=== PATIENT | female | born 1970 | race Caucasian/White ===

== ENCOUNTER 2016-08-12 20:13 | Emergency (ER) | payer MEDICARE ==
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
[2016-08-12 21:20] LABS: ABSOLUTE BASOPHILS # (AUTO) 0.1 10^3/uL (0.0-0.2); ABSOLUTE LYMPHOCYTES (AUTO) 2.5 10^3/uL (0.5-4.7); ABSOLUTE MONOCYTES (AUTO) 0.8 10^3/uL (0.1-1.4); ABSOLUTE NEUT (AUTO) 5.8 10^3/uL (1.7-8.2); BASOPHILS % (AUTO) 0.7 % (0-2); EOSINOPHILS % (AUTO) 0.4 % (0-6); HEMATOCRIT 39.8 % (36.0-47.0); HEMOGLOBIN 12.7 g/dL (12.0-15.5); HGB HCT DIFFERENCE -1.7; LYMPHOCYTES % (AUTO) 27.4 % (13-45); MEAN CORPUSCULAR HEMOGLOBIN 30.4 pg (27.0-33.4); MEAN CORPUSCULAR VOLUME 95 fl (80-97); MONOCYTES % (AUTO) 8.3 % (3-13); RED BLOOD COUNT 4.19 10^6/uL (3.72-5.28); RED CELL DISTRIBUTION WIDTH 13.9 % (11.5-14.0); SEGMENTED NEUTROPHILS % (AUTO) 63.2 % (42-78); WHITE BLOOD COUNT 9.1 10^3/uL (4.0-10.5)
[2016-08-12 21:37] LABS: ALANINE AMINOTRANSFERASE 30 U/L (9-52); ALBUMIN 3.6 g/dL (3.5-5.0); ALKALINE PHOSPHATASE 71 U/L (38-126); ANION GAP 9 (5-19); ASPARTATE AMINO TRANSFERASE 29 U/L (14-36); BILIRUBIN,DIRECT 0.2 mg/dL (0.0-0.4); BILIRUBIN,TOTAL 0.4 mg/dL (0.2-1.3); BLOOD UREA NITROGEN 13 mg/dL (7-20); CALCIUM 9.8 mg/dL (8.4-10.2); CARBON DIOXIDE 30 mmol/L (22-30); CHLORIDE 103 mmol/L (98-107); CREATININE RESULT 1.16 mg/dL (0.52-1.25); GLUCOSE 102 mg/dL (75-110); POTASSIUM 5.1 mmol/L (3.6-5.0); SODIUM 141.6 mmol/L (137-145); TOTAL PROTEIN 6.2 g/dL (6.3-8.2)
[2016-08-13 01:16] LABS: APPEARANCE,URINE SLIGHTLY-CLOUDY; BILIRUBIN,URINE NEGATIVE (NEGATIVE); GLUCOSE, URINE NEGATIVE (NEGATIVE); KETONES,URINE TRACE mg/dL (NEGATIVE); LEUKOCYTE ESTERASE,URINE NEGATIVE (NEGATIVE); NITRITE,URINE NEGATIVE (NEGATIVE); PROTEIN,URINE NEGATIVE (NEGATIVE); UROBILINOGEN,URINE NEGATIVE mg/dL (<2.0)
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
[2016-08-13 02:33] VITALS: BP 97/68
== END 2016-08-13 02:30 | disposition home or self-care (01) ==
LOC: ER 20:13
DX: R25.1 Tremor, unspecified (principal); R42 Dizziness and giddiness; R55 Syncope and collapse; Z88.6 Allergy status to analgesic agent; Z90.49 Acquired absence of other specified parts of digestive tract
CPT/HCPCS: 36415; 70450; 80053; 81001; 85025; 99284

== ENCOUNTER 2016-10-03 15:30 | Emergency (ER) | payer MEDICARE ==
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
[2016-10-03 16:13] LABS: ABSOLUTE BASOPHILS # (AUTO) 0.1 10^3/uL (0.0-0.2); ABSOLUTE LYMPHOCYTES (AUTO) 2.3 10^3/uL (0.5-4.7); ABSOLUTE NEUT (AUTO) 6.7 10^3/uL (1.7-8.2); BASOPHILS % (AUTO) 0.8 % (0-2); HEMATOCRIT 37.2 % (36.0-47.0); HEMOGLOBIN 12.3 g/dL (12.0-15.5); HGB HCT DIFFERENCE -0.3; LYMPHOCYTES % (AUTO) 22.9 % (13-45); MEAN CORPUSCULAR HEMOGLOBIN 30.6 pg (27.0-33.4); MEAN CORPUSCULAR VOLUME 93 fl (80-97); MONOCYTES % (AUTO) 9.5 % (3-13); RED BLOOD COUNT 4.01 10^6/uL (3.72-5.28); RED CELL DISTRIBUTION WIDTH 13.6 % (11.5-14.0); SEGMENTED NEUTROPHILS % (AUTO) 66.8 % (42-78)
[2016-10-03 16:30] LABS: ALANINE AMINOTRANSFERASE 25 U/L (9-52); ALBUMIN 2.9 g/dL (3.5-5.0); ALKALINE PHOSPHATASE 56 U/L (38-126); ANION GAP 7 (5-19); ASPARTATE AMINO TRANSFERASE 14 U/L (14-36); BILIRUBIN,DIRECT 0.3 mg/dL (0.0-0.4); BILIRUBIN,TOTAL 0.5 mg/dL (0.2-1.3); BLOOD UREA NITROGEN 15 mg/dL (7-20); CALCIUM 8.6 mg/dL (8.4-10.2); CARBON DIOXIDE 23 mmol/L (22-30); CHLORIDE 110 mmol/L (98-107); CREATININE RESULT 0.86 mg/dL (0.52-1.25); GLUCOSE 64 mg/dL (75-110); LIPASE 88.5 U/L (23-300); POTASSIUM 3.9 mmol/L (3.6-5.0); SODIUM 140.4 mmol/L (137-145); TOTAL PROTEIN 5.4 g/dL (6.3-8.2)
[2016-10-03] MEDS ORDERED: NORMAL SALINE 1000 ML 1,000 ML IV ONE (16:31)
--- NOTE | 2016-10-03 17:11 | RADIOLOGY REPORT (SQ) ---
EXAM DESCRIPTION: CT ABD/PELVIS WITH IV ONLY COMPLETED DATE/TIME: 10/03/2016 4:57 pm REASON FOR STUDY: LLQ pn, n/v/d, r/o diverticulitis COMPARISON: MRI abdomen 05/31/2015 TECHNIQUE: CT scan of the abdomen and pelvis performed using helical scanning technique with dynamic intravenous contrast injection. No oral contrast. Images reviewed with lung, soft tissue, and bone windows. Reconstructed coronal and sagittal MPR images reviewed. Delayed images for evaluation of the urinary system also acquired. All images stored on PACS. All CT scanners at this facility use dose modulation, iterative reconstruction, and/or weight based d osing when appropriate to reduce radiation dose to as low as reasonably achievable (ALARA). [facility]: Dose Right [facility]: CareDose [facility]: Dose Right [facility]: Teradose 4D [facility]: [employer] CONTRAST TYPE AND DOSE: contrast/concentration: Isovue 370.00 mg/ml; Total Contrast Delivered: 58.0 ml; Total Saline Delivered: 65.0 ml RENAL FUNCTION: None required. The patient is less than 50 years old. RADIATION DOSE: 10.79. LIMITATIONS: None. FINDINGS: LOWER CHEST: No significant findings. No nodules or infiltrates. LIVER: Normal size. No masses. No dilated ducts. Simple hepatic cysts similar to that seen on [facility] MR imaging. SPLEEN: Normal size. No focal lesions. PANCREAS: No masses. No significant calcifications. No adjacent inflammation or peripancreatic fluid collections. Pancreatic duct not dilated. GALLBLADDER: Surgically absent. The common bile duct is again noted to be prominent; this is unchang ed in the study interval. ADRENAL GLANDS: No significant masses or asymmetry. RIGHT KIDNEY AND URETER: No solid masses. No significant calcifications. No hydronephrosis or hyd roureter. LEFT KIDNEY AND URETER: No solid masses. No significant calcifications. No hydronephrosis or hydr oureter. AORTA AND VESSELS: No aneurysm. No dissection. Renal arteries, SMA, celiac without stenosis. RETROPERITONEUM: No retroperitoneal adenopathy, hemorrhage or masses. BOWEL AND PERITONEAL CAVITY: No masses or inflammatory changes. No free fluid or peritoneal masses. APPENDIX: Normal. PELVIS: No mass or free fluid. Normal bladder. ABDOMINAL WALL: No masses. No hernias. BONES: No significant or acute findings. OTHER: No other significant finding. IMPRESSION: NO ACUTE FINDING IN THE ABDOMEN OR PELVIS ON CT SCAN WITH IV CONTRAST. TECHNICAL DOCUMENTATION: JOB ID: [id number] Quality ID # [id number]: Final reports with documentation of one or more dose reduction techniques (e.g., Au tomated exposure control, adjustment of the mA and/or kV according to patient size, use of iterative reconstruction technique) 2010 [employer]- All Rights Reserved
[2016-10-03 17:13] LABS: APPEARANCE,URINE SLIGHTLY-CLOUDY; BILIRUBIN,URINE NEGATIVE (NEGATIVE); GLUCOSE, URINE NEGATIVE (NEGATIVE); KETONES,URINE 80 mg/dL (NEGATIVE); LEUKOCYTE ESTERASE,URINE NEGATIVE (NEGATIVE); NITRITE,URINE NEGATIVE (NEGATIVE); PROTEIN,URINE 30 mg/dL (NEGATIVE); URINE SPECIFIC GRAVITY 1.024; UROBILINOGEN,URINE NEGATIVE mg/dL (<2.0)
[2016-10-03 18:27] VITALS: BP 114/64
== END 2016-10-03 18:25 | disposition home or self-care (01) ==
LOC: ER 15:30
DX: R11.2 Nausea with vomiting, unspecified (principal); R19.7 Diarrhea, unspecified; R10.30 Lower abdominal pain, unspecified; R53.1 Weakness; R63.4 Abnormal weight loss; Z68.21 Body mass index [BMI] 21.0-21.9, adult; R25.1 Tremor, unspecified; G89.29 Other chronic pain; Z79.891 Long term (current) use of opiate analgesic; Z87.19 Personal history of other diseases of the digestive system; Z90.49 Acquired absence of other specified parts of digestive tract; Z88.6 Allergy status to analgesic agent; Z88.8 Allergy status to other drugs, medicaments and biological substances; Z88.5 Allergy status to narcotic agent
CPT/HCPCS: 99284; 96360; 36415; 83690; 80053; 85025; 81001; 74177; J7030

== ENCOUNTER 2017-07-08 05:34 | Day surgery (SDC) | payer MEDICARE, MEDICAID ==
[2017-07-05 12:56] LABS: APPEARANCE,URINE CLEAR; BILIRUBIN,URINE NEGATIVE (NEGATIVE); COLOR,URINE YELLOW; GLUCOSE, URINE NEGATIVE (NEGATIVE); KETONES,URINE NEGATIVE (NEGATIVE); LEUKOCYTE ESTERASE,URINE TRACE (NEGATIVE); NITRITE,URINE NEGATIVE (NEGATIVE); PROTEIN,URINE NEGATIVE (NEGATIVE); URINE SPECIFIC GRAVITY 1.019
[2017-07-05 13:14] LABS: ALANINE AMINOTRANSFERASE 28 U/L (9-52); ALBUMIN 3.9 g/dL (3.5-5.0); ALKALINE PHOSPHATASE 105 U/L (38-126); ANION GAP 8 (5-19); ASPARTATE AMINO TRANSFERASE 30 U/L (14-36); BILIRUBIN,DIRECT 0.2 mg/dL (0.0-0.4); BILIRUBIN,TOTAL 0.2 mg/dL (0.2-1.3); BLOOD UREA NITROGEN 12 mg/dL (7-20); CALCIUM 9.7 mg/dL (8.4-10.2); CARBON DIOXIDE 33 mmol/L (22-30); CHLORIDE 100 mmol/L (98-107); GLUCOSE 68 mg/dL (75-110); POTASSIUM 4.3 mmol/L (3.6-5.0); SODIUM 141.3 mmol/L (137-145); TOTAL PROTEIN 6.3 g/dL (6.3-8.2)
--- NOTE | 2017-07-05 13:30 | EKG REPORT ---
SEVERITY:- BORDERLINE ECG - SINUS RHYTHM MILD NONSPECIFIC ANTERIOR ST CHANGES : Confirmed by: Diogenes Almendarez MD 05-Jul-2017 13:30:15
[2017-07-06 15:49] LABS: HEMATOCRIT 36.5 % (36.0-47.0); HEMOGLOBIN 12.1 g/dL (12.0-15.5); MEAN CORPUSCULAR HEMOGLOBIN 29.5 pg (27.0-33.4); MEAN CORPUSCULAR HGB CONC 33.3 g/dL (32.0-36.0); MEAN CORPUSCULAR VOLUME 89 fl (80-97); PLATELET COUNT 330 10^3/uL (150-450); RED BLOOD COUNT 4.11 10^6/uL (3.72-5.28); RED CELL DISTRIBUTION WIDTH 13.7 % (11.5-14.0)
[~2017-07-08 05:34] MED LIST: CEFAZOLIN 2 GM/D5W RTU 2 GM/50 ML RTUPB IV PRN; LACTATED RINGERS 1000 ML IV PRN; LIDOCAINE 0.5% INJ-PF (5 MG/ML) 50 ML SDV SUBCUT PRN
[2017-07-08] MEDS ORDERED: ACETAMINOPHEN 100 ML IV ONE (06:55)
[2017-07-08] MEDS ORDERED: FENTANYL CITRATE INJ/PF 100 MCG/2 ML AMPUL ONE ×3 (06:55→11:05)
[2017-07-08] MEDS ORDERED: MIDAZOLAM 2 MG/2 ML INJ ONE ×2 (06:55→07:38)
[2017-07-08] MEDS ORDERED: PROPOFOL INJ 200 MG/20 ML VIAL IV ONE (06:55)
[2017-07-08] MEDS ORDERED: OXYTOCIN 10 UNIT/ML VIAL ONE (07:37)
[2017-07-08] MEDS ORDERED: EPHEDRINE SULFATE INJ 50 MG/1 ML AMPULE ONE (07:37)
[2017-07-08] MEDS ORDERED: ONDANSETRON HCL INJ/PF 4 MG/2 ML SDV ONE ×2 (07:37→09:47)
[2017-07-08] MEDS ORDERED: FENTANYL CITRATE INJ/PF 100 MCG/2 ML AMPUL IV PRN ×3 (09:22)
[2017-07-08] MEDS ORDERED: MEPERIDINE HCL/PF INJ 25 MG/1 ML DISP.SYRIN IV PRN (09:22)
[2017-07-08] MEDS ORDERED: MORPHINE SULFATE 10 MG/ML INJ IV PRN (09:22)
[2017-07-08] MEDS ORDERED: ONDANSETRON HCL INJ/PF 4 MG/2 ML SDV IV PRN (09:22)
[2017-07-08] MEDS ORDERED: PROMETHAZINE HCL INJ 25 MG/1 ML VIAL IV PRN ×2 (09:22→10:37)
[2017-07-08] MEDS ORDERED: DIPHENHYDRAMINE HCL 50 MG/ML VIAL IV PRN (09:22)
[2017-07-08] MEDS ORDERED: KETOROLAC TROMETHAMINE 60 MG/2 ML SDV ONE (09:47)
[2017-07-08] MEDS ORDERED: VECURONIUM BROMIDE INJ 10 MG VIAL IV ONE (09:47)
[2017-07-08] MEDS ORDERED: GLYCOPYRROLATE INJ 0.4 MG/2 ML VIAL ONE (09:47)
[2017-07-08] MEDS ORDERED: NEOSTIGMINE METHYLSULFATE 10 MG/10 ML VIAL ONE (09:47)
[2017-07-08] MEDS ORDERED: LIDOCAINE 2% INJ-PF (20 MG/ML) 2 ML AMPUL ONE (09:47)
[2017-07-08] MEDS ORDERED: DEXAMETHASONE SOD PHOSPHATE INJ 4 MG/1 ML VIAL ONE (09:47)
[2017-07-08] MEDS ORDERED: ACETAMINOPHEN 325 MG TABLET PO PRN (10:37)
[2017-07-08] MEDS ORDERED: OXYCODONE-ACETAMINOPHEN 5-325 MG TABLET PO PRN ×2 (10:37)
[2017-07-08] MEDS ORDERED: HYDROMORPHONE HCL INJ/PF 2 MG/ML AMPULE IV PRN ×2 (10:37→13:53)
[2017-07-08] MEDS ORDERED: ACETAMINOPHEN 100 ML IV PRN (10:37)
[2017-07-08] MEDS ORDERED: SIMETHICONE 80 MG TAB.CHEW PO PRN (10:37)
--- NOTE | 2017-07-08 10:59 | Operative Report ---
Operative Report DATE OF SURGERY: 07/08/17 PREOPERATIVE DIAGNOSIS: Persistent persistently abnormal Pap abnormal uterine bleeding chronic pelvic pain dyspareunia POSTOPERATIVE DIAGNOSIS: Same OPERATION: Robotic hysterectomy with bilateral salpingo-oophorectomy SURGEON: KISHAN JAVIER ANESTHESIA: GA TISSUE REMOVED OR ALTERED: Uterus tubes ovaries COMPLICATIONS: None ESTIMATED BLOOD LOSS: 100 cc INTRAOPERATIVE FINDINGS: Small uterus left ovary adhesed in the pelvis. Descending colon adhesion to left sidewall. PROCEDURE: Patient requests a hysterectomy for dyspareunia pelvic pain irregular bleeding and a persistently abnormal Pap smear. She was taken to the OR and placed in supine position. General anesthesia was induced. She is placed in the dorsolithotomy position using Derick stirrups. Her abdomen perineum and vagina were prepared and draped in a sterile fashion. Paulson catheter was placed in the bladder for drainage during the case and a [employer] care uterine manipulator was placed on the cervix. An incision was made at the umbilicus and the natural umbilical defect was identified and dilated allowing a blunt port to be placed. Laparoscopy confirmed appropriate placement. The lateral ports were placed under laparoscopic visualization in the right lower quadrant port was placed under laparoscopic visualization for the insufflator. View of the pelvis was good. The descending colon was adhered somewhat to the sidewall which obstructed view of the left ovary and tube. Using sharp dissection without cautery the sidewall adhesions were taken down which freed up the colon. There is no evidence of injury to the colon upon inspection at the time of the dissection and at the end of the case. Next the right infundibulopelvic pedicle was identified elevated out of the pelvis away from the ureter and cauterized with bipolar cautery. Staying close to the ovary and tube the broad ligament was incised with the monopolar bernard up to the uterus. The tube and ovary were passed off the field. The left ovary was somewhat adherent down in the pelvis and this was taken off the pelvic sidewall with sharp and blunt dissection and likewise elevated up out of the pelvis away from the ureter. The infundibulopelvic pedicle on the left side was cauterized with bipolar cautery. Again staying close to the ovary and tube the broad ligament was incised with monopolar bernard to the uterus and the specimen was passed off the field. The tissue throughout the pelvis seemed somewhat thickened throughout the dissection. The round ligaments were not easily identifiable. Therefore I began taking the broad ligament off the uterus directly next to the uterus. This was done by cauterizing with bipolar bernard while retracting the uterus up out of the pelvis and then cutting the tissue with monopolar bernard. The anterior leaf of the broad ligament was incised creating a bladder flap. The uterine arteries were then cauterized by laterally with bipolar cautery and then cut with monopolar bernard. The cardinal ligaments like clot likewise were cauterized with bipolar cautery and cut with monopolar bernard. Upon reaching the cup of the V care uterine manipulator a circumferential incision was made excising the cervix free from the vaginal cuff. The uterus was removed through the vagina. The V lock suture was then placed and the monopolar bernard exchanged for a needle forklift driver. The vaginal cuff was then closed from right to the left. The initial suture was placed through the anterior vaginal mucosa lateral vaginal sidewall posterior vaginal mucosa was pulled tight. The vaginal cuff was then closed anterior to posterior with running V lock suture. Upon reaching the left angle anterior vaginal cuff lateral vaginal sidewall posterior vaginal cuff were incorporated into the stitch. 3 more sutures were taken medially in the stitch was cut. The pelvis was irrigated and inspected for bleeding there was no active bleeding noted. The bowel was also inspected and there is no evidence of injury. The bladder also was inspected and there was no evidence of injury. The robot was undocked. Then using the robotic camera as a laparoscope I once again inspected all pedicles and the bowel and the ureters and found no evidence of injury. The lateral ports were removed under laparoscopic visualization. The insufflating port was also removed under laparoscopic visualization and the umbilical port with an camera were removed at the same time. The fascia at the umbilicus was closed with a 2-0 Vicryl suture as well as the fascia at the insufflation port site. The skin at all 4 sites was closed with 4-0 undyed Vicryl 6 stitch. The wounds were dressed. Patient was extubated in the OR and taken recovery room in stable condition.
[2017-07-08] MEDS: KETOROLAC TROMETHAMINE INJ/PF 30 MG/1 ML SDV IV SCH ×2 (12:34→19:57)
[2017-07-08] MEDS ORDERED: HYDROMORPHONE HCL 2 MG TABLET PO PRN (13:54)
[2017-07-08 14:51] LABS: HEMATOCRIT 36.3 % (36.0-47.0); HEMOGLOBIN 12.3 g/dL (12.0-15.5); MEAN CORPUSCULAR HEMOGLOBIN 29.9 pg (27.0-33.4); MEAN CORPUSCULAR HGB CONC 33.7 g/dL (32.0-36.0); MEAN CORPUSCULAR VOLUME 89 fl (80-97); PLATELET COUNT 306 10^3/uL (150-450); RED CELL DISTRIBUTION WIDTH 13.5 % (11.5-14.0); WHITE BLOOD COUNT 10.2 10^3/uL (4.0-10.5)
[2017-07-08 15:19] LABS: ANION GAP 10 (5-19); BLOOD UREA NITROGEN 11 mg/dL (7-20); CALCIUM 9.3 mg/dL (8.4-10.2); CARBON DIOXIDE 28 mmol/L (22-30); CHLORIDE 104 mmol/L (98-107); GLUCOSE 98 mg/dL (75-110); POTASSIUM 3.8 mmol/L (3.6-5.0); SODIUM 142.2 mmol/L (137-145)
[2017-07-08] MEDS: RINGERS SOLUTION,LACTATED 1,000 ML IV PRN (16:03)
[2017-07-08] MEDS ORDERED: LAMOTRIGINE 100 MG PO SCH (18:00)
[2017-07-08] MEDS ORDERED: LEVETIRACETAM 500 MG PO SCH (18:00)
[2017-07-08] MEDS: HYDROMORPHONE HCL 2 MG TABLET PO PRN ×2 (18:45→21:46)
[2017-07-08] MEDS: ALPRAZOLAM 0.5 MG TABLET PO SCH (18:46)
[2017-07-08] MEDS: DOCUSATE SODIUM 100 MG CAPSULE PO SCH (18:46)
[2017-07-08] MEDS: VENLAFAXINE HCL 75 MG TABLET PO SCH (21:43)
[2017-07-08] MEDS: LAMOTRIGINE 100 MG TABLET PO SCH (21:44)
[2017-07-08] MEDS: LEVETIRACETAM 500 MG TABLET PO SCH (21:45)
[2017-07-09] MEDS: RINGERS SOLUTION,LACTATED 1,000 ML IV PRN (01:54)
[2017-07-09] MEDS: HYDROMORPHONE HCL 2 MG TABLET PO PRN ×3 (03:20→14:10)
[2017-07-09] MEDS: KETOROLAC TROMETHAMINE INJ/PF 30 MG/1 ML SDV IV SCH (03:20)
[2017-07-09 07:10] LABS: HEMATOCRIT 29.9 % (36.0-47.0); MEAN CORPUSCULAR HGB CONC 33.8 g/dL (32.0-36.0); MEAN CORPUSCULAR VOLUME 89 fl (80-97); PLATELET COUNT 260 10^3/uL (150-450); RED BLOOD COUNT 3.38 10^6/uL (3.72-5.28)
[2017-07-09 07:19] LABS: HEMOGLOBIN 10.1 g/dL (12.0-15.5)
[2017-07-09 07:20] LABS: BLOOD UREA NITROGEN 12 mg/dL (7-20); CHLORIDE 108 mmol/L (98-107); GLUCOSE 75 mg/dL (75-110); POTASSIUM 3.7 mmol/L (3.6-5.0)
[2017-07-09 07:25] LABS: ANION GAP 6 (5-19); CARBON DIOXIDE 29 mmol/L (22-30); SODIUM 142.7 mmol/L (137-145)
[2017-07-09] MEDS: VENLAFAXINE HCL 75 MG TABLET PO SCH (09:42)
[2017-07-09] MEDS: LEVETIRACETAM 500 MG TABLET PO SCH (09:43)
[2017-07-09] MEDS: DOCUSATE SODIUM 100 MG CAPSULE PO SCH ×2 (09:44→17:19)
[2017-07-09] MEDS: LAMOTRIGINE 100 MG TABLET PO SCH (09:44)
[2017-07-09] MEDS: ALPRAZOLAM 0.5 MG TABLET PO SCH ×2 (09:45→17:19)
[2017-07-09] MEDS ORDERED: BUSPIRONE HCL 10 MG TABLET PO SCH (10:00)
[2017-07-09] MEDS ORDERED: PRENATAL VITAMIN W DHA CAPSULE PO SCH (10:00)
--- NOTE | 2017-07-09 10:36 | PDOC PROGRESS REPORT ---
Subjective Progress Note for:: 07/09/17 Subjective:: She is doing well but has not been able to void yet. Reason For Visit: ROBOTIC ASSISTED HYSTERECTOMY Physical Exam - Physical Exam Vital Signs: Temp Pulse Resp BP Pulse Ox 98.6 F 91 16 113/71 92 07/09/17 08:46 07/09/17 08:46 07/09/17 08:46 07/09/17 08:46 07/09/17 08:46 Intake & Output 07/08/17 07/09/17 07/10/17 06:59 06:59 06:59 Intake Total 0 2700 Output Total 2575 Balance 0 125 Weight 58.97 kg 69 kg General appearance: PRESENT: no acute distress, well-developed, well-nourished Head exam: PRESENT: atraumatic - Abdomen is soft and nontender, normocephalic Result Laboratory Results: 07/09/17 06:50 07/09/17 06:50 07/08/17 07/08/17 07/09/17 14:27 14:27 06:50 WBC 10.2 11.0 H RBC 4.10 3.38 L Hgb 12.3 10.1 L D Hct 36.3 29.9 L MCV 89 89 MCH 29.9 30.0 MCHC 33.7 33.8 RDW 13.5 14.0 Plt Count 306 260 Sodium 142.2 Potassium 3.8 Chloride 104 Carbon Dioxide 28 Anion Gap 10 BUN 11 Creatinine 0.94 Est GFR ( Amer) > 60 Est GFR (Non-Af Amer) > 60 Glucose 98 Calcium 9.3 07/09/17 06:50 WBC RBC Hgb Hct MCV MCH MCHC RDW Plt Count Sodium 142.7 Potassium 3.7 Chloride 108 H Carbon Dioxide 29 Anion Gap 6 BUN 12 Creatinine 0.89 Est GFR ( Amer) > 60 Est GFR (Non-Af Amer) > 60 Glucose 75 Calcium 9.0 Assessment & Plan - Diagnosis (1) Pelvic pain Is this a current diagnosis for this admission?: Yes (2) Menorrhagia Qualifiers: Menorrahagia type: with irregular cycle Qualified Code(s): N92.1 - Excessive and frequent menstruation with irregular cycle Is this a current diagnosis for this admission?: Yes (3) Dyspareunia Is this a current diagnosis for this admission?: Yes - Plan Summary Plan Summary: Remove catheter, saline lock IV, advance diet.
--- NOTE | 2017-07-09 16:26 | Discharge Summary ---
Discharge Summary (SDC) - Discharge Final Diagnosis: dysparunia, pelvic pain, menorrhagia, abnormal pap. Date of Surgery: 07/08/17 Discharge Date: 07/09/17 Condition: Good Treatment or Instructions: Home with pelvic rest for 8 wks. Slowly increase activity. May drive after 2 wks. Followup next week in the office. Prescriptions: Estrogens,Conjugated [Premarin 0.625 Mg Tablet] 0.625 mg PO DAILY 30 Days #30 tablet Referrals: KISHAN CHRISTOPHER MD [ACTIVE STAFF] - 07/23/17 10:00 am (Please keep your scheduled follow up apointment with Dr Christopher on 07/23/17 at 10:00 am. If you have any questions please call the office directly at .) Discharge Activity: Balance Activity w/Rest, Pelvic Rest Home Care Assistance: None Needed Report the Following to Your Physician Immediately: Increase in Pain, Fever over 101 Degrees, Unusual Bleeding
[2017-07-09 17:07] VITALS: BP 113/71
[2017-07-09] MEDS ORDERED: IBUPROFEN 800 MG TABLET PO SCH (18:00)
== END 2017-07-09 18:59 | disposition home or self-care (01) ==
LOC: OROUT 05:34 → 2S 12:21 → OROUT 07-09 18:59
PROVIDERS: ATTEND Obstetrics & Gynecology
PROC: 0UT24ZZ Resection of Bilateral Ovaries, Percutaneous Endoscopic Approach (ICD-10-PCS; 2017-07-08)
PROC: 0UT74ZZ Resection of Bilateral Fallopian Tubes, Percutaneous Endoscopic Approach (ICD-10-PCS; 2017-07-08)
PROC: 8E0W4CZ Robotic Assisted Procedure of Trunk Region, Percutaneous Endoscopic Approach (ICD-10-PCS; 2017-07-08)
PROC: 0UT94ZZ Resection of Uterus, Percutaneous Endoscopic Approach (ICD-10-PCS; principal; 2017-07-08 07:30)
DX: N93.8 Other specified abnormal uterine and vaginal bleeding (principal); N94.10 Unspecified dyspareunia; G89.29 Other chronic pain; R10.2 Pelvic and perineal pain; N87.0 Mild cervical dysplasia; N80.1 Endometriosis of ovary; N83.322 Acquired atrophy of left fallopian tube; N83.321 Acquired atrophy of right fallopian tube; E03.9 Hypothyroidism, unspecified; E11.9 Type 2 diabetes mellitus without complications; Z79.899 Other long term (current) drug therapy; G40.909 Epilepsy, unspecified, not intractable, without status epilepticus
CPT/HCPCS: 58571; S2900; 36415; 80048; 80053; 81001; 81025; 82962; 840; 85025; 85027; 86850; 86900; 86901; 88309; 93005; 93010; 94799; J0131; J0690; J1100; J1170; J1885; J2250; J2405; J2590; J2704; J3010; J3490; J7120

== ENCOUNTER → 2018-11-17 | Outpatient (CLI) | payer MEDICARE ==
[~2018-11-17] MED LIST changes: -CEFAZOLIN 2 GM/D5W RTU 2 GM/50 ML RTUPB IV PRN; +DIAZEPAM 5 MG TABLET ONE; -LACTATED RINGERS 1000 ML IV PRN; -LIDOCAINE 0.5% INJ-PF (5 MG/ML) 50 ML SDV SUBCUT PRN
--- NOTE | 2018-11-17 11:20 | RADIOLOGY REPORT (SQ) ---
EXAM DESCRIPTION: MRI ABDOMEN WITHOUT COMPLETED DATE/TIME: 11/17/2018 11:06 am REASON FOR STUDY: K86.89 OTHER SPECIFIED DISEASES OF PANCREAS K86.89 OTHER SPECIFIED DISEASES OF PA NCREAS R93.89 ABNORMAL FINDINGS ON DX IMAGING OF [facility] BODY STRUCTURE COMPARISON: 05/31/2015 TECHNIQUE: Noncontrast MRCP. Source and MIP images reviewed. LIMITATIONS: None. FINDINGS: GALLBLADDER: Choose 2 INTRAHEPATIC DUCTS: Nondilated. EXTRAHEPATIC DUCTS: Common bile duct is now dilated to 1.3 cm compared to 1.1 cm previously. Tapered distally without mass. Suggestive of stricture. PANCREAS: Generally homogeneous, no gross mass or significant signal alteration. No surrounding infl ammatory changes or fluid. Pancreatic duct is normal. LIVER, SPLEEN, KIDNEYS, ADRENALS: Stable hepatic cysts. Spleen kidneys adrenal glands unremarkable. VESSELS: No evidence of aneurysm. Grossly appropriate flow voids in the major vascular structures. LUNG BASES: Grossly clear. OTHER: No other significant finding. IMPRESSION: Slight further increase diameter of the common bile duct. Likely distal stricture. No mass. TECHNICAL DOCUMENTATION: JOB ID: [id number] [employer]- All Rights Reserved Reading location - IP/workstation name: [email or web address]
== END ==
LOC: RAD 09:24
PROVIDERS: ATTEND Surgery
DX: K86.89 Other specified diseases of pancreas (principal); K76.89 Other specified diseases of liver; R93.89 Abnormal findings on diagnostic imaging of other specified body structures
CPT/HCPCS: 74181; A9270

== ENCOUNTER → 2018-12-05 | Outpatient (CLI) | payer MEDICARE ==
[2018-12-05 14:57] LABS: ALKALINE PHOSPHATASE 162 U/L (38-126); ANION GAP 7 (5-19); ASPARTATE AMINO TRANSFERASE 42 U/L (14-36); BILIRUBIN,DIRECT 0.1 mg/dL (0.0-0.4); BILIRUBIN,TOTAL 0.4 mg/dL (0.2-1.3); BLOOD UREA NITROGEN 13 mg/dL (7-20); CALCIUM 9.6 mg/dL (8.4-10.2); CARBON DIOXIDE 32 mmol/L (22-30); CHLORIDE 101 mmol/L (98-107); GLUCOSE 73 mg/dL (75-110); POTASSIUM 4.9 mmol/L (3.6-5.0); TOTAL PROTEIN 6.7 g/dL (6.3-8.2)
== END ==
LOC: OD 13:44
PROVIDERS: ATTEND Physician Assistant Surgical
DX: R10.9 Unspecified abdominal pain (principal); K86.89 Other specified diseases of pancreas
CPT/HCPCS: 36415; 80053

== ENCOUNTER 2019-01-03 14:45 | Day surgery (SDC) | payer MEDICARE ==
[~2019-01-03 14:45] MED LIST changes: -DIAZEPAM 5 MG TABLET ONE; +SUCCINYLCHOLINE CHLORIDE INJ 200 MG/10 ML VIAL ONE
[2019-01-03] MEDS ORDERED: PROPOFOL INJ 200 MG/20 ML VIAL IV ONE (15:49)
[2019-01-03] MEDS ORDERED: ONDANSETRON HCL INJ/PF 4 MG/2 ML SDV ONE ×2 (15:49→17:18)
[2019-01-03] MEDS ORDERED: MIDAZOLAM 2 MG/2 ML INJ ONE (15:49)
[2019-01-03] MEDS ORDERED: DEXAMETHASONE SOD PHOSPHATE INJ 4 MG/1 ML VIAL ONE (15:49)
[2019-01-03] MEDS ORDERED: FENTANYL CITRATE INJ/PF 100 MCG/2 ML AMPUL ONE (15:49)
[2019-01-03] MEDS ORDERED: GLUCAGON,HUMAN RECOMB 1 MG INJ ONE (15:50)
[2019-01-03] MEDS ORDERED: ONDANSETRON HCL INJ/PF 4 MG/2 ML SDV IV PRN (16:50)
[2019-01-03] MEDS ORDERED: DIPHENHYDRAMINE HCL 50 MG/ML VIAL IV PRN (16:50)
[2019-01-03] MEDS ORDERED: MEPERIDINE HCL/PF INJ 25 MG/1 ML DISP.SYRIN IV PRN (16:50)
[2019-01-03] MEDS ORDERED: FENTANYL CITRATE INJ/PF 100 MCG/2 ML AMPUL IV PRN ×3 (16:50)
--- NOTE | 2019-01-03 17:12 | Operative Report ---
Operative Report DATE OF SURGERY: 01/03/19 Operative Report: Pre-op diagnosis: Dilated biliary tree with recurrent elevated LFTs Post-op diagnosis: 1 Dilated common bile duct and intrahepatic duct 2. Common bile duct sludge Surgery: ERCP with sphincterotomy and balloon sludge extraction Medications: As per anesthesia Tissue removed: None Procedure: After informed consent obtained from patient, the throat was sprayed with Hurricane and conscious sedation was achieved. The ERCP endoscope was then inserted into the esophagus blindly and advanced into the stomach. The duodenum was entered and the ampulla was identified. Using the triple-lumen sphincterotomy catheter the common bile duct was freely cannulated. A cholangiogram was obtained which showed marked dilation of the common bile duct, left and right hepatic ducts and mild dilation of the intrahepatic ducts. A good sized sphincterotomy was then performed using the endocut mode. The catheter was removed over the guidewire before a 9-12 mm balloon catheter was inserted. The balloon was inflated to 12 mm in the proximal common bile duct and pulled down the duct. Some sludge was extracted. There was no difficulty pulling the 12 mm balloon through the sphincterotomy. The duct was swept 2 more times. A balloon occlusion cholangiogram was normal. The pancreatic duct was intentionally not cannulated. Patient tolerated procedure well. Findings Common bile duct: Dilated with small amount of sludge Intrahepatic ducts: Dilated Pancreatic duct: Not cannulated Plan: We will schedule her for endoscopic ultrasound in view of the mildly dilated pancreatic duct noted on MRCP. OPERATION: ERCP with sphincterotomy and balloon sludge extraction
[2019-01-03] MEDS ORDERED: ACETAMINOPHEN 325 MG TABLET ONE (17:36)
[2019-01-03] MEDS ORDERED: PROMETHAZINE HCL INJ 25 MG/1 ML VIAL ONE (17:39)
--- NOTE | 2019-01-03 17:41 | RADIOLOGY REPORT (SQ) ---
EXAM DESCRIPTION: ENDO CATH/BILIARY DUCT; NO CHG FLUORO COMPLETED DATE/TIME: 01/03/2019 5:24 pm REASON FOR STUDY: ERCP K87 DISORD OF GB, BILIARY TRAC AND PANCREAS IN DIS CLASSD EL R11.2 NAUSEA W ITH VOMITING, UNSPECIFIED R10.13 EPIGASTRIC PAIN COMPARISON: None. FLUOROSCOPY TIME: 2.6 minutes Spot images saved to PACS. TECHNIQUE: Intra-operative images acquired during surgical procedure to evaluate progress. NUMBER OF IMAGES: 17 LIMITATIONS: None. FINDINGS: Fluoroscopy was provided for intraoperative procedure. Please refer to the operative repo rt for further discussion. IMPRESSION: IMAGE(S) OBTAINED DURING PROCEDURE. COMMENT: Quality ID [id number]: Final reports for procedures using fluoroscopy that document radiation exp osure indices, or exposure time and number of fluorographic images (if radiation exposure indices are not available) Please consult full operative report of the attending physician for description of the procedure. TECHNICAL DOCUMENTATION: JOB ID: [id number] [employer]- All Rights Reserved Reading location - IP/workstation name: [email or web address]
--- NOTE | 2019-01-03 17:41 | RADIOLOGY REPORT (SQ) ---
EXAM DESCRIPTION: ENDO CATH/BILIARY DUCT; NO CHG FLUORO COMPLETED DATE/TIME: 01/03/2019 5:24 pm REASON FOR STUDY: ERCP K87 DISORD OF GB, BILIARY TRAC AND PANCREAS IN DIS CLASSD EL R11.2 NAUSEA W ITH VOMITING, UNSPECIFIED R10.13 EPIGASTRIC PAIN COMPARISON: None. FLUOROSCOPY TIME: 2.6 minutes Spot images saved to PACS. TECHNIQUE: Intra-operative images acquired during surgical procedure to evaluate progress. NUMBER OF IMAGES: 17 LIMITATIONS: None. FINDINGS: Fluoroscopy was provided for intraoperative procedure. Please refer to the operative repo rt for further discussion. IMPRESSION: IMAGE(S) OBTAINED DURING PROCEDURE. COMMENT: Quality ID [id number]: Final reports for procedures using fluoroscopy that document radiation exp osure indices, or exposure time and number of fluorographic images (if radiation exposure indices are not available) Please consult full operative report of the attending physician for description of the procedure. TECHNICAL DOCUMENTATION: JOB ID: [id number] [employer]- All Rights Reserved Reading location - IP/workstation name: [email or web address]
[2019-01-03] MEDS ORDERED: HYDROMORPHONE HCL 2 MG TABLET ONE (18:34)
[2019-01-03 19:33] VITALS: BP 112/83
== END 2019-01-03 19:35 | disposition home or self-care (01) ==
LOC: OROUT 14:45
PROVIDERS: ATTEND Internal Medicine Gastroenterology
DX: K83.8 Other specified diseases of biliary tract (principal); K87 Disorders of gallbladder, biliary tract and pancreas in diseases classified elsewhere; K83.1 Obstruction of bile duct
CPT/HCPCS: 43277; 43262; 74328; 00732; A9270 ×2; J2250; J1100; J3010; J2550; J0330; J2405; J2704; 732; J1610